=== PATIENT | female | born 1975 | race Caucasian/White ===

== ENCOUNTER 2017-09-06 09:48 | Emergency (ER) | payer MEDICAID, OTHER ==
[2017-09-06 09:48] VITALS: BMI 34.9
[2017-09-06 09:54] VITALS: BP 138/96; PULSE 100; RESP 20; TEMP 98.5; O2SAT 100
[2017-09-06] MEDS ORDERED: Tmp-Smz 800 mg-160 mg DS Tab PO STA (10:46)
[2017-09-06] MEDS ORDERED: Tdap Vaccine 0.5 ml Vial (10-64 yrs) IM ONE ×2 (10:48→11:05)
--- NOTE | 2017-09-06 10:54 | C.PDOC ---
History Of Present Illness 42 year old female presents to the ED c/o redness, swelling, tenderness of his right elbow for the past 1 week. Patient reports she noticed the area has been red, tenderness, and today started oozing puss. Patient denies any injury, trauma, fever, chills, Hx of DM. Time Seen by Provider: 09/06/17 10:37 Chief Complaint (Nursing): Abnormal Skin Integrity History Per: Patient History/Exam Limitations: no limitations Onset/Duration Of Symptoms: Days Current Symptoms Are (Timing): Still Present Location Of Injury: Right: Elbow (redness, swelling) Quality Of Symptoms: Painful, Swollen, Draining Recent travel outside of the [place]: No Additional History Per: Patient Past Medical History Reviewed: Historical Data, Nursing Documentation, Vital Signs Vital Signs: Last Vital Signs Temp 98.5 F 09/06/17 09:52 Pulse 100 H 09/06/17 09:52 Resp 20 09/06/17 09:52 BP 138/96 H 09/06/17 09:52 Pulse Ox 100 09/06/17 13:04 - Medical History PMH: Fractures (LEFT ARM/CASTED CHILDHOOD), Gastritis, HTN Denies: Chronic Kidney Disease Surgical History: Endoscopy - [facility] Procedures ESOPHAGOGASTRODUODENOSCOPY [EGD] W/CLOSED BIOPSY (01/24/15) EXCISION OF STOMACH, PERCUTANEOUS ENDOSCOPIC APPROACH, VERT (03/12/16) INJECT/INFUSE NEC (12/27/05) INSPECTION OF UPPER INTESTINAL TRACT, ENDO (03/12/16) Family History: States: No Known Family Hx - Social History Hx Alcohol Use: No Hx Substance Use: No - Immunization History Hx Tetanus Toxoid Vaccination: No Hx Influenza Vaccination: No Hx Pneumococcal Vaccination: No Review Of Systems Constitutional: Negative for: Fever, Chills Cardiovascular: Negative for: Chest Pain Respiratory: Negative for: Cough, Shortness of Breath Gastrointestinal: Negative for: Nausea, Vomiting, Abdominal Pain Musculoskeletal: Positive for: Other (right elbow redness, swelling) Skin: Negative for: Rash Neurological: Negative for: Weakness, Numbness Physical Exam - Physical Exam Appears: Non-toxic, No Acute Distress Skin: Normal Color, Warm, Dry Head: Atraumatic, Normacephalic Eye(s): bilateral: Normal Inspection Nose: No Discharge Oral Mucosa: Moist Extremity: Normal ROM, Tenderness, No Calf Tenderness, No Deformity, No Swelling , Other (erythema, fluctuance area actively draining puss, no lmphagitis, no crepitus, neurovascular intact) Pulses: Left Radial: Normal, Right Radial: Normal Neurological/Psych: Oriented x3, Normal Speech, Normal Cognition Gait: Steady ED Course And Treatment O2 Sat by Pulse Oximetry: 100 (On RA) Pulse Ox Interpretation: Normal Medical Decision Making Medical Decision Making: Assessment: Draining abscess Plan: * Tetanus 0.5 ml IM * Keflex 500 mg PO * Motrin 600 mg PO * Bactrim 1 tab PO Patient will be D/C home with antibiotics prescription, advised to massage to express puss. Return in 2 days for a check up and advised to return to the ED is symptoms worsen. Disposition Counseled Patient/Family Regarding: Diagnosis, Need For Followup, Rx Given - Disposition Referrals: [facility] [Outside] Disposition: HOME/ ROUTINE Disposition Time: 10:52 Condition: STABLE Additional Instructions: follow up with your doctor in 2 days call to make an appointment take medications as prescribed return to ER if symptoms worsens or progress warm compresses and gentle massage area Prescriptions: Cephalexin [Keflex] 500 mg PO QID #40 capsule Naproxen [Naprosyn] 500 mg PO BID PRN #16 tab PRN Reason: Pain, Moderate (4-7) Sulfamethoxazole/Trimethoprim [Bactrim DS 800 mg-160 mg] 1 tab PO BID #20 tab Instructions: Skin Abscess Forms: [facility] (Maori), General Discharge Instructions Print Language: SERBIAN - Clinical Impression Clinical Impression: Abscess - Scribe Statement The provider has reviewed the documentation as recorded by the Scribyessenia Dumont All medical record entries made by the Ginaibyessenia were at my direction and personally dictated by me. I have reviewed the chart and agree that the record accurately reflects my personal performance of the history, physical exam, medical decision making, and the department course for this patient. I have also personally directed, reviewed, and agree with the discharge instructions and disposition.
[2017-09-06] MEDS ORDERED: Tmp-Smz 800 mg-160 mg DS Tab ONE (11:03)
== END 2017-09-06 11:15 | disposition home or self-care (01) ==
LOC: C.ER 09:48
DX: L02.413 Cutaneous abscess of right upper limb (principal); I10 Essential (primary) hypertension; Z23 Encounter for immunization

== ENCOUNTER 2017-09-19 23:01 | Emergency (ER) | payer OTHER ==
[2017-09-19 23:02] VITALS: BMI 34.9
[2017-09-20 00:38] LABS: SQUAMOUS EPITHIAL 10 /hpf (0-5); URINE BACTERIA RARE (<OCC); URINE BILIRUBIN NEGATIVE (NEGATIVE); URINE BLOOD 2+ (NEGATIVE); URINE CLARITY Hazy (Clear); URINE COLOR Amber (YELLOW); URINE GLUCOSE (UA) NORMAL (Normal); URINE LEUKOCYTE ESTERASE NEG Leu/uL (Negative); URINE PROTEIN 1+ mg/dL (NEGATIVE)
[2017-09-20 00:44] LABS: BASO % 0.2 % (0.0-2.0); EOS # 0.1 K/uL (0.0-0.7); EOS % 1.2 % (0.0-4.0); HEMOGLOBIN 12.3 g/dL (11.0-16.0); LYMPH # 0.4 K/uL (1.0-4.3); LYMPH % 7.8 % (20.0-40.0); MEAN CELL VOLUME 85.6 fL (81.0-99.0); MEAN CORPUSCULAR HEMOGLOBIN 28.1 pg (27.0-31.0); MEAN CORPUSCULAR HGB CONC 32.9 g/dL (33.0-37.0); MEAN PLATELET VOLUME 8.7 fL (7.2-11.7); MONO # 0.1 K/uL (0.0-0.8); MONO % 2.2 % (0.0-10.0); NEUT # 4.9 K/uL (1.8-7.0); NEUT % 88.6 % (50.0-75.0); NRBC % 0.1 % (0.0-2.0); PLATELET COUNT 164 K/uL (130-400); RBC 4.36 Mil/uL (3.80-5.20); RED CELL DISTRIBUTION WIDTH 13.4 % (11.5-14.5); WHITE BLOOD COUNT 5.5 K/uL (4.8-10.8)
[2017-09-20 00:44] LABS: HCG,QUALITATIVE URINE NEGATIVE (NEGATIVE)
[2017-09-20 00:50] LABS: ALB/GLOB RATIO 0.9 (1.0-2.1); ALBUMIN 3.9 g/dL (3.5-5.0); ALT/SGPT 94 U/L (9-52); AST/SGOT 225 U/L (14-36); BLOOD UREA NITROGEN 11 mg/dL (7-17); CALCIUM 8.8 mg/dl (8.6-10.4); GFR AFRICAN-AMERICAN > 60; GFR NON-AFRICAN AMERICAN > 60
--- NOTE | 2017-09-20 01:27 | C.PDOC ---
History Of Present Illness 42 y/o female presents to the ED complaining of intermittent subjective fevers since yesterday. Patient is concerned due to recent right arm cellulitis. States she completed the course of antibiotics. Patient reports much improved and minimal pain to the area. No recent URI symptoms, dysuria, frequency, abdominal pain, vomiting, or diarrhea. Time Seen by Provider: 09/19/17 23:23 Chief Complaint (Nursing): Fever History Per: Patient History/Exam Limitations: no limitations Onset/Duration Of Symptoms: Days (x2) Current Symptoms Are (Timing): Still Present Sick Contacts (Context): None Associated Symptoms: denies: Sore Throat, Cough, Myalgias, Nasal Congestion, Vomiting, Diarrhea Ear Symptoms: Bilateral: None Recent travel outside of the [place]: No Past Medical History Reviewed: Historical Data, Nursing Documentation, Vital Signs Vital Signs: Last Vital Signs Temp 98.2 F 09/20/17 01:40 Pulse 89 09/20/17 01:40 Resp 20 09/20/17 01:40 BP 135/78 09/20/17 01:40 Pulse Ox 96 09/20/17 03:37 - Medical History PMH: Fractures (LEFT ARM/CASTED CHILDHOOD), Gastritis, HTN Denies: Chronic Kidney Disease Surgical History: Endoscopy - [facility] Procedures ESOPHAGOGASTRODUODENOSCOPY [EGD] W/CLOSED BIOPSY (01/24/15) EXCISION OF STOMACH, PERCUTANEOUS ENDOSCOPIC APPROACH, VERT (03/12/16) INJECT/INFUSE NEC (12/27/05) INSPECTION OF UPPER INTESTINAL TRACT, ENDO (03/12/16) Family History: States: No Known Family Hx - Social History Hx Alcohol Use: Yes Hx Substance Use: No - Immunization History Hx Tetanus Toxoid Vaccination: No Hx Influenza Vaccination: Yes Hx Pneumococcal Vaccination: No Review Of Systems Except As Marked, All Systems Reviewed And Found Negative. Constitutional: Positive for: Fever (subjective) ENT: Negative for: Nose Congestion Respiratory: Negative for: Cough Gastrointestinal: Negative for: Vomiting, Diarrhea Genitourinary: Negative for: Dysuria, Frequency Physical Exam - Physical Exam Appears: Well, Non-toxic, No Acute Distress Skin: Normal Color, Warm, Dry Head: Atraumatic, Normacephalic Eye(s): bilateral: Normal Inspection, PERRL, EOMI Nose: Normal Oral Mucosa: Moist Throat: Normal, No Erythema, No Exudate Neck: Normal ROM, Supple Chest: Symmetrical Cardiovascular: Rhythm Regular, No Murmur Respiratory: Normal Breath Sounds, No Rhonchi, No Wheezing Gastrointestinal/Abdominal: Normal Exam, Bowel Sounds, Soft, No Tenderness, No Distention Back: No CVA Tenderness Extremity: Normal ROM, Capillary Refill (is normal), No Swelling (slight bony protusion at epicondylar area of right elbow, no effusion or warmth), Other ( Dry coarse skin at right elbow, no gross swelling, warmth, or acute erythema) Extremity: Bilateral: Atraumatic Pulses: Left Radial: Normal, Right Radial: Normal Neurological/Psych: Oriented x3, Normal Speech Gait: Steady ED Course And Treatment - Laboratory Results Result Diagrams: 09/20/17 00:34 09/20/17 00:34 O2 Sat by Pulse Oximetry: 96 (RA) Pulse Ox Interpretation: Normal - Other Rad Rt elbow X-Ray: Interpreted by Me Interpretation: no acute findings Progress Note: Patient offered pain medication, and declined. Ordered blood work , throat culture, flu swab, UA, and x-ray of right elbow. Labs show no acute abnormalities. X-ray, viewed by me, is negative. Patient counseled regarding dosing of antipyretics and advised to follow up with PMD. Pt understands and agrees to plan. 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 - Scribe Statement The provider has reviewed the documentation as recorded by the Scribe (Renate Ventura) All medical record entries made by the Scribe were at my direction and personally dictated by me. I have reviewed the chart and agree that the record accurately reflects my personal performance of the history, physical exam, medical decision making, and the department course for this patient. I have also personally directed, reviewed, and agree with the discharge instructions and disposition.
[2017-09-20 01:41] VITALS: BP 135/78; PULSE 89; RESP 20; TEMP 98.2
[2017-09-20 02:13] LABS: BANDS 9 % (0-2); EOSINOPHIL 1 % (0-4); LYMPHOCYTE 9 % (20-40); MONOCYTE 2 % (0-10); NEUTROPHIL 79 % (50-75); PLATELET ESTIMATE NORMAL (NORMAL); TOTAL CELLS COUNTED 100
[2017-09-20 03:29] VITALS: O2SAT 96
--- NOTE | 2017-09-20 10:12 | RAD ---
PROCEDURE: Radiographs of the right elbow. HISTORY: pain, redness COMPARISON: No prior. FINDINGS: BONES: Normal. No fracture. JOINTS: Normal. No osteoarthritis. SOFT TISSUES: Normal. JOINT EFFUSION: None. OTHER FINDINGS: None. IMPRESSION: Unremarkable radiographs of the right elbow.
== END 2017-09-20 01:41 | disposition home or self-care (01) ==
LOC: C.ER 23:01
DX: B34.9 Viral infection, unspecified (principal); R50.9 Fever, unspecified; I10 Essential (primary) hypertension

== ENCOUNTER 2018-11-17 14:16 | Outpatient (CLI) | payer OTHER | END 2018-11-17 14:17 | disposition home or self-care (01) | LOC: C.MAMMO 14:16 ==